=== PATIENT | male | born 1995 | race Caucasian/White ===

== ENCOUNTER 2018-12-11 19:33 | Emergency (ER) | payer MEDICAID ==
--- NOTE | 2018-12-11 20:00 | ED Physician Chart ---
ED Chief Complaint/HPI - Patient Information Date Seen:: 12/11/18 Time Seen:: 19:46 Chief Complaint:: Chest pain for 2 weeks. History of Present Illness:: Pt came in by private auto because of chest pain for 2 weeks. Chest pain is characterized as sharp, constant, and localized at mid sternal region. No fever or cough. No dyspnea. No palpitation. No known aggravating or relieving factors. Pt rides his bicycle at least 3 times weekly, up to an hour each session without unusual physical limitation. Allergies:: Allergies Allergy/AdvReac Type Severity Reaction Status Date / Time No Known Allergies Allergy Verified 12/11/18 19:44 Vitals:: Vital Signs - 8 hr 12/11/18 19:35 Temp 98.1 F HR 81 RR 18 BP 123/76 O2 Sat % 98 Historian:: Patient Family MD/PCP:: Dr. Henderson LMP:: N/A Review:: Nurse's Note Reviewed ED Review of Systems - Review of Systems General/Constitutional: No fever, No chills, No weight loss, No weakness, No edema, No loss of appetite Skin: No skin lesions, No rash Head: No headache, No light-headedness Eyes: No loss of vision, No pain, No diplopia ENT: No earache, No nasal drainage, No sore throat Neck: No neck pain, No swelling, No stiffness Cardio Vascular: Chest pain (c/w noncardiac in etiology.), No palpitations, No PND, No orthopnea, No edema Pulmonary: No SOB, No cough GI: No nausea, No vomiting, No pain G/U: No dysuria, No frequency, No hematuria Musculoskeletal: No bone or joint pain, Other Endocrine: No polyuria, No polydipsia Psychiatric: No prior psych history Hematopoietic: No bruising, No lymphadenopathy Allergic/Immuno: No angioedema Neurological: No syncope, No focal symptoms, No weakness, No paresthesia, No headache, No confusion ED Past Medical History - Past Medical History Past Medical History: No significant medical hx Family History: Diabetes Melitus (in father) Social History: Non Smoker, Alcohol (occasional), No Drug Use, , Employed , Other (lives with his .) 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 Surgical History: None Psychiatricy History: None Medication: None Family Medical History - Family Member Mother History Unknown: Yes Ethnicity: ED Physical Exam - Physical Examination General/Constitutional: Awake, Well-developed, well-nourished (male), Alert, No distress, Non-toxic appearing, Ambulatory Other Gen/Cons comments:: Breathes comfortably, speaks clearly, and interacts appropriately. Head: Atraumatic Eyes: Lids, conjuctiva normal, PERRL, EOMI Skin: Nl inspection, Well hydrated, No lymphadenopathy ENMT: External ears, nose nl, Nasal exam nl, Oropharynx nl Neck: Nontender, Full ROM w/o pain, No JVD, No nuchal rigidity, No mass, No stridor Other Neck comments:: Carotid pulses 2+/2+ Respiratory: Nl effort/Exclusion, Clear to Auscultation, No Wheeze/Rhonchi/Rales Cardio Vascular: RRR, No murmur, gallop, rubs, NL S1 S2 Other Cardio Vascular comments:: Chest exam: unremarkable except reproducible tenderness with palpation at mid sternal region. Pt states that it is the same pain he has experienced. GI: No tenderness/rebounding/guarding, No organomegaly, Normal BS's, Nondistended, No mass/bruits Extremities: No tenderness or effusion, Full ROM, No edema Neuro/Psych: Alert/oriented (oriented x 3), Judgement/insight normal, Mood normal, Normal gait, No focal deficits ED Labs/Radiology/EKG Results - Lab Results Results: Laboratory Tests 12/11/18 12/11/18 12/11/18 20:20 20:20 20:20 WBC 7.0 RBC 5.31 Hgb 15.0 Hct 44.8 MCV 84.4 MCH 28.4 MCHC Differential 33.6 RDW 12.5 Plt Count 203 MPV 8.9 Neutrophils % 47.1 Lymphocytes % 45.9 Monocytes % 3.3 Eosinophils % 3.4 Basophils % 0.3 PT 9.9 INR 0.95 PTT (Actin FS) 25.9 L Sodium 138 Potassium 3.7 Chloride 105 Carbon Dioxide 24.8 Anion Gap 11.9 BUN 20 Creatinine 0.9 Est GFR ( Amer) > 60.0 Est GFR (Non-Af Amer) > 60.0 BUN/Creatinine Ratio 22.2 Glucose 100 Calcium 9.5 Total Bilirubin 0.4 AST 16 ALT 20 Alkaline Phosphatase 62 Troponin I Total Protein 7.0 Albumin 4.2 Globulin 2.8 Albumin/Globulin Ratio 1.5 12/11/18 20:20 WBC RBC Hgb Hct MCV MCH MCHC Differential RDW Plt Count MPV Neutrophils % Lymphocytes % Monocytes % Eosinophils % Basophils % PT INR PTT (Actin FS) Sodium Potassium Chloride Carbon Dioxide Anion Gap BUN Creatinine Est GFR ( Amer) Est GFR (Non-Af Amer) BUN/Creatinine Ratio Glucose Calcium Total Bilirubin AST ALT Alkaline Phosphatase Troponin I < 0.01 L Total Protein Albumin Globulin Albumin/Globulin Ratio - Radiology Results Results: CXR (1v.): Based on my interpretation, NAD. Official report is pending. - EKG Interpretations EKG Time:: 20:10 Rate & Rhythm: NSR with VR 74 Comments:: J point elevation noticed in precordial leads. Otherwise, no acute ischemic changes. ED Septic Shock - . Is Septic Shock (SBP<90, OR Lactate>4 mmol\L) present?: No - <6hrs of presentation: Vital Signs: Vital Signs - 8 hr 12/11/18 19:35 Temp 98.1 F HR 81 RR 18 BP 123/76 O2 Sat % 98 ED Reassessment (Disposition) - Reassessment Reassessment:: 2122 Pt has been pain free and is comfortable. EKG, CXR, and lab findings have been reviewed with pt. Pt requests to go home now and does not want further observation/management in hospital. Aftercare instructions have been given. Reassessment Condition:: Improved - Diagnosis Diagnosis:: Noncardiac chest wall pain. Stable and currently asymptomatic. - Aftercare/Follow up Instructions Aftercare/Follow-Up Instructions:: Refer to Discharge Instructions Notes:: Bed rest for today. Avoid heavy lifting and activities that put stress on chest wall. May take Motrin 200 mg tab 4 tabs po q8h prn chest wall pain. F/U with PCP Dr. Henderson in one day for recheck. Return to ER immediately if condition worsens or if any further questions/problems. Medication Prescribed:: None - Patient Disposition Discharge/Transfer:: Home Time:: 21:30 Condition at Disposition:: Stable
[2018-12-11 20:30] LABS: % BASOPHILS 0.3 % (0.0-2.0); % EOSINOPHILS 3.4 % (0.0-5.0); % LYMPHOCYTES 45.9 % (20.0-50.0); % MONOCYTES 3.3 % (2.0-10.0); % NEUTROPHILS 47.1 % (40.0-80.0); EOSINOPHILE ABSOLUTE 0.2 Th/cmm (0.1-0.4); HEMATOCRIT 44.8 % (41.0-60); LYMPHOCYTE ABSOLUTE 3.2 Th/cmm (1.5-3.0); MEAN CELL VOLUME 84.4 fl (80-99); MEAN CORPUSCULAR HEMOGLOBIN 28.4 pg (26.0-30.0); MEAN CORPUSCULAR HGB CONC 33.6 pg (28.0-36.0); MONOCYTE ABSOLUTE 0.2 Th/cmm (0.3-1.0); NEUTROPHILE ABSOLUTE 3.4 Th/cmm (1.8-8.0); PLATELET COUNT 203 Th/cmm (150-400); RED BLOOD COUNT 5.31 Mil/cmm (4.30-5.70); RED CELL DISTRIBUTION WIDTH 12.5 % (11.5-20.0)
[2018-12-11 20:41] LABS: INR 0.95 (0.5-1.4)
[2018-12-11 20:46] LABS: ALB/GLOB RATIO 1.5 (1.0-1.8); ALBUMIN 4.2 gm/dL (4.2-5.5); ALKALINE PHOSPHATASE 62 U/L (34-104); ANION GAP 11.9 (7.0-16.0); BILIRUBIN,TOTAL 0.4 mg/dL (0.3-1.0); BUN - UREA NITROGEN 20 mg/dL (7-25); CALCIUM SERUM 9.5 mg/dL (8.6-10.3); CARBON DIOXIDE 24.8 mEq/L (21.0-31.0); CHLORIDE 105 mEq/L (98-107); CREATININE - SERUM 0.9 mg/dL (0.7-1.3); GFR AFRICAN-AMERICAN > 60.0 ml/min (>90); GFR NON AFRICAN-AMERICAN > 60.0 ml/min; GLUCOSE 100 mg/dL (70-105); POTASSIUM SERUM 3.7 mEq/L (3.5-5.1); SGOT 16 U/L (13-39); SGPT/ALT 20 U/L (7-52); SODIUM SERUM 138 mEq/L (136-145)
--- NOTE | 2018-12-12 08:10 | Diagnostic Imaging Report ---
Portable chest x-ray History: Pain Allowing for portable technique the heart size is normal. No focal pulmonary parenchymal processes. No hilar or mediastinal abnormalities. Impression: No acute abnormalities.
== END 2018-12-11 21:36 | disposition home or self-care (01) ==
LOC: ER 19:33
DX: R07.9 Chest pain, unspecified (principal)
CPT/HCPCS: 36415-UA; 71045-TC; 80053-TC; 84484-TC; 85025-TC; 85610-TC; 93005